=== PATIENT | female | born 1990 | race Two or more races ===

== ENCOUNTER 2019-08-13 20:55 | Emergency (ER) | payer OTHER ==
[~2019-08-13] VITALS: Ht 152.4 cm; Wt 45.4 kg
[~2019-08-13 20:55] MED LIST: BENADRYL50 MG PO; MEDROL4 MG PO
[2019-08-13] MEDS ORDERED: ORPHENADRINE C100 MG PO (22:02)
[2019-08-13] MEDS ORDERED: DICLOFENAC SODI75 MG PO (22:02)
== END 2019-08-13 22:48 | disposition home or self-care (01) ==
LOC: ER 20:55
DX: S13.4XXA Sprain of ligaments of cervical spine, initial encounter (principal); M62.838 Other muscle spasm; V49.9XXA Car occupant (driver) (passenger) injured in unspecified traffic accident, initial encounter; Y93.89 Activity, other specified; Y92.488 Other paved roadways as the place of occurrence of the external cause; Y99.8 Other external cause status